=== PATIENT | male | born 1995 ===

== ENCOUNTER 2018-08-22 06:15 | Day surgery (SDC) | payer BC ==
[~2018-08-22] VITALS: Ht 167.6 cm; Wt 65.8 kg
[2018-08-22] VITALS (13 sets, daily range): BP systolic 116–134; BP diastolic 61–87
[2018-08-22] MEDS ORDERED: Dexamethasone 4mg/ml vial IVP ONE (06:30)
[2018-08-22] MEDS ORDERED: PROPECIA1 MG PO (06:38)
[2018-08-22] MEDS ORDERED: Lidocaine 1% 10mg/ml/Epi 0.005mg/ml 30ml vial INJ ONE (06:58)
[2018-08-22] MEDS ORDERED: Bupivacaine 0.5% 10ml INJ ONE (06:58)
[2018-08-22] MEDS ORDERED: Cocaine HCl 4% 4ml vial TOPIC ONE (06:58)
[2018-08-22] MEDS ORDERED: Midazolam 2mg/2ml Inj ONE (07:01)
[2018-08-22] MEDS ORDERED: fentaNYL 100 mcg/2 mL IV ONE (07:01)
[2018-08-22] MEDS ORDERED: Propofol 200mg/20ml IV ONE (07:02)
[2018-08-22] MEDS ORDERED: Bupivacaine w/Epi 0.5% 30ml Vial INJ ONE (07:13)
[2018-08-22] MEDS ORDERED: TransDerm Scop 1mg/72HR Patch TDERMAL ONE ×2 (07:36→08:15)
[2018-08-22] MEDS ORDERED: NS Irrig 1000ml ONE (07:40)
[2018-08-22] MEDS ORDERED: LR 1000ml ONE (07:40)
[2018-08-22] MEDS ORDERED: Ketorolac 30mg Inj ONE (07:40)
[2018-08-22] MEDS ORDERED: Sterile Water Irrig 1000ml IRRIG ONE (07:40)
[2018-08-22] MEDS ORDERED: Dexamethasone 4mg/ml vial ONE (07:40)
--- NOTE | 2018-08-22 07:45 | Pre-Procedure Note/Attestation ---
Pre-Procedure Note/Attestation Complete Prior to Procedure Planned Procedure: bilateral Procedure Narrative: ORIF nasal fracture Septoplasty SMR bilateral inferior turbinates Indications for Procedure Pre-Operative Diagnosis: Nasal deformity Nasal septal deviation Hypertrophied inferior turbinates Attestation I attest that I discussed the nature of the procedure; its benefits; risks and complications; and alternatives (and the risks and benefits of such alternatives ), prior to the procedure, with the patient (or the patient's legal account maintenance representative). I attest that, if there was a reasonable possibility of needing a blood transfusion, the patient (or the patient's legal account maintenance representative) was given the [facility] standardized written summary, pursuant to the [place] Blood Safety Act ([place] Health and Safety Code # 1645, as amended). I attest that I re-evaluated the patient just prior to the surgery and that there has been no change in the patient's H&P. Best Lovell MD Aug 22, 2018 07:45
--- NOTE | 2018-08-22 08:12 | Anethesia Preoperative Eval ---
Anesthesia Pre-op PMH/ROS General Date of Evaluation: Aug 22, 2018 Time of Evaluation: 07:25 Anesthesiologist: Valdemar ASA Score: ASA 1 Mallampati Score Class I : Soft palate, uvula, fauces, pillars visible Class II: Soft palate, uvula, fauces visible Class III: Soft palate, base of uvula visible Class IV: Only hard plate visible Mallampati Classification: Class II Surgeon: Nas Diagnosis: Nasal septum deviation Surgical Procedure: Septoplasty Anesthesia History: none Family History: no anesthesia problems Allergies: Coded Allergies: No Known Allergies (Unverified , 08/22/18) Medications: see eMAR Patient NPO?: Yes Past Medical History Cardiovascular: Denies: HTN, CAD, SD, valve dz, arrhythmia, other Pulmonary: Denies: asthma, COPD, LAURA, other Gastrointestinal/Genitourinary: Denies: GERD, CRI, ESRD, other Neurologic/Psychiatric: Denies: dementia, CVA, depression/anxiety, TIA, other Endocrine: Denies: DM, hypothyroidism, steroids, other HEENT: Denies: cataract (L), cataract (R), glaucoma, [place] (L), [place] (R), other Hematology/Immune: Denies: anemia, DVT, bleeding disorder, other Musculoskeletal/Integumentary: Denies: OA, RA, DJD, DDD, edema, other PMH Narrative: as above PSxH Narrative: none Anesthesia Pre-op Phys. Exam Physician Exam Last Vital Signs Date Time Temp Pulse Resp B/P (MAP) Pulse Ox O2 Delivery O2 Flow Rate FiO2 08/22/18 06:43 97.6 86 18 116/61 99 Room Air Constitutional: NAD Cardiovascular: RRR, no M/R/G Respiratory: CTA Gastrointestinal: S/NT/ND Airway Exam Mallampati Score: Class II MO: full Neck: flexible ROM: full Dentures: no upper, no lower Anesthesia Pre-op A/P Labs see chart Risk Assessment & Plan Assessment: ASA 1 Plan: GA with LMA PONV prevention Status Change Before Surgery: No Pre-Antibiotics Drug: Ancef 1gr Given Within 1 Hr of Incision: Yes Time Given: 07:50 Preet Aldrich MD Aug 22, 2018 08:12
[2018-08-22] MEDS ORDERED: LR 1000ml 1,000 ML IVLG SCH (08:13)
[2018-08-22] MEDS ORDERED: Metoclopramide 10mg/2ml Inj IVP PRN ×2 (08:15→09:15)
[2018-08-22] MEDS ORDERED: Meperidine 50mg/ml Inj(FOR RIGORS ONLY) IV PRN (08:15)
[2018-08-22] MEDS ORDERED: Ketorolac 30mg Inj IV PRN (08:15)
[2018-08-22] MEDS ORDERED: DiphenhydrAMINE 50mg/ml Inj IVP PRN (08:15)
--- NOTE | 2018-08-22 08:55 | Brief Operative Note ---
Immediate Post Operative Note Operative Note Chief Complaint: Nasal deformity, Nasal airway obstruction Pre-op Diagnosis: Nasal deformity Nasal septal deviation Hypertrophied inferior turbinates Procedure: 1. ORIF nasal fracture 2. Septoplasty 3. SMR right inferior turbinate 4. SMR left inferior turbinate Post-op Diagnosis: same as pre-op Surgeon: Best Lovell Financial Services Officer: none Additional Surgeons: none Anesthesiologist: Dr. Doty Anesthesia: general Specimen: yes - gross septal bone and cart. Complications: none Condition: stable Fluids: D5LR Estimated Blood Loss: volume - 150 cc Drains: none Packing: Stamberger nasal gel Implant(s) used?: No Best Lovell MD Aug 22, 2018 08:55
--- NOTE | 2018-08-22 09:02 | Immediate Post-Op Evaluation ---
Immediate Post-Op Evalulation Immediate Post-Op Evalulation Procedure: Septoplasty, turbinate ablasion Date of Evaluation: Aug 22, 2018 Time of Evaluation: 09:00 IV Fluids: 800 Blood Products: none Estimated Blood Loss: 50 Urinary Output: none Blood Pressure Systolic: 124 Blood Pressure Diastolic: 76 Pulse Rate: 87 Respiratory Rate: 20 O2 Sat by Pulse Oximetry: 99 Temperature (Fahrenheit): 97.8 Pain Score (1-10): 1 Nausea: No Vomiting: No Complications none Patient Status: reacts, patent, none Hydration Status: adequate Preet Aldrich MD Aug 22, 2018 09:02
--- NOTE | 2018-08-22 09:09 | Discharge Instructions ---
Discharge Instructions Discharge Instructions Follow up with: 08/28/18 Dr. Lovell's office-pt already has appt with time Diet: regular Resume Normal Activity?: No Activity: light activity Pneumonia Vaccine: pt refused vaccine Influenza Vaccine (Apr to Sep): pt refused vaccine Follow Up Orders Pt has printed instructions for post op care reviewed with me during his pre op visit in the office last week. He also has post op meds Rx fro [facility] and [place]. Return to Work/School on: Sep 05, 2018 Special Instructions ice to face x 48 hours. For Surgical Patients Dressing Care: may change May shower: No For Congestive Heart Failure Reminder Report to your physician any weight gain of 5 pounds or more in one week. Best Lovell MD Aug 22, 2018 09:09
[2018-08-22] MEDS ORDERED: Norco 5mg/325mg tab ORAL PRN (09:15)
[2018-08-22] MEDS ORDERED: HYDROmorphone 1mg/ml Carpuject SUBQ PRN (09:15)
--- NOTE | 2018-08-22 10:00 | 48 Hour Post Anesthesia Eval ---
Post Anesthesia Evaluation Procedure: Septoplasty, turbinate ablasion Date of Evaluation: Aug 22, 2018 Time of Evaluation: 09:58 Blood Pressure Systolic: 116 0: 74 Pulse Rate: 108 Respiratory Rate: 20 Temperature (Fahrenheit): 98.5 O2 Sat by Pulse Oximetry: 99 Airway: patent Nausea: No Vomiting: No Pain Intensity: 1 Hydration Status: adequate Cardiopulmonary Status: stable Mental Status/LOC: patient returned to baseline Follow-up Care/Observations: n/a Post-Anesthesia Complications: none Follow-up care needed: ready to discharge Preet Aldrich MD Aug 22, 2018 10:00
--- NOTE | 2018-08-22 17:45 | Operative Note - Dictated ---
DATE OF OPERATION: 08/22/2018 SURGEON: Best Lovell M.D. SENIOR ENVIRONMENTAL PRACTICE LEADER: None. ANESTHESIOLOGIST: Feliciano. ANESTHESIA: LMA general anesthesia with 18 mL of 50:50 mixture of 1% lidocaine with 1:100,000 epinephrine and Marcaine 0.5% with 1:200,000 epinephrine. Additionally, 4 mL of 4% topical cocaine were placed on a total of 4 nasal pledgets, two on either nostril, which were retrieved and accounted for at the end of the case. INDICATION FOR SURGERY: Nasal deformity, nasal airway obstruction due to septoplasty, and hypertrophied bilateral inferior turbinates. PREOPERATIVE DIAGNOSES: Nasal deformity, nasal airway obstruction due to septoplasty, and hypertrophied bilateral inferior turbinates. POSTOPERATIVE DIAGNOSES: Nasal deformity, nasal airway obstruction due to septoplasty, and hypertrophied bilateral inferior turbinates. FINDINGS: S-shaped septum as well as nose was off to the right. PROCEDURES: 1. Open reduction and internal fixation, nasal fracture. 2. Septoplasty. 3. Submucous resection, right inferior turbinate. 4. Submucous resection, left inferior turbinate. TECHNIQUE: The patient was prepped and draped in usual manner. Time-out was performed and all concurred as the equipment and procedures to be done. Initially, I injected with the aforementioned lidocaine, Marcaine, and epinephrine mixture. I then placed nasal pledgets in the nostril. Submucous resection of the right inferior turbinate was first done. Incision, anteroinferior position. Elevated with [place] elevator and then coblated with a 54 blade, setting of 6, 10 seconds after coating with saline gel x2 passes. Left inferior turbinate was addressed. Incision made and elevated with a [place] elevator. I then passed the radiofrequency wand after coating with nasal gel at a setting of 6 x 10 seconds twice. I then turned my attention to the septum, which was quite malaligned in that it was off to the right with thick bone and off to the left in the vomer, so it was very concave on the left and convex on the right. A Jermain incision was made on the lower left to lift up over the vomer and under direct vision, a small straight guarded osteotome was utilized to remove the bony vomer and straight Jan to pull it out. I then turned my attention to the upper part of the septum on the right via the right naris. A small Jermain incision made, elevated, removed by elevating the periosteum. Subperiosteal elevation on either side utilizing an angled scissors to remove the deviated septum and then this was all sewn back together with a 4-0 plain suture x3. Incision made between the cartilages and lateral end side of the nares low. I then proceeded to take a Paulo elevator and elevated the periosteum and perichondrium over the anterior part of the nose. Medium straight guarded osteotome to make the medial osteotomy and then low lateral osteotomies with a small straight guarded osteotome. Nose was then freely fractured. A Boies elevator and an Chaz forceps were utilized to delineate this. I then proceeded to place the nose back into position and rasp anteriorly. A tape was placed on the nose and a stent. The nose was then suctioned clean and placed Stammberger nasal gel. Mustache dressing was placed. COUNTS: Sponge and needle count was correct. ESTIMATED BLOOD LOSS: Approximately 150 mL. COMPLICATIONS: None. DRAINS: None. Approximately 20 minutes later, I saw the patient in the recovery room. They changed the nasal dressing once. He was doing well, awake, stable. Pain he stated was tolerable, 4/10. I did speak with the patient's father. Best Lovell M.D. DR: RIVER JOB#: [id number] CC:
[2018-08-23] MEDS ORDERED: ceFAZolin sod 1 GM in NS 55 ML IVPB ONE (06:30)
--- NOTE | 2018-08-23 13:00 | Pre-op HX & Phy Repo 2 SIG ---
DATE OF SURGERY: 08/22/2018 INDICATION FOR SURGERY: This is a 23-year-old male for repair of acquired nasal deformity, deviated nasal septum, hypertrophied right and left inferior turbinates. PAST MEDICAL HISTORY: Unremarkable for heart, liver, lung, kidney, tobacco, alcohol, chemical dependency issues. His nutrition, omnivore, low red meat. PAST SURGICAL HISTORY: He had a frenulectomy as a baby without any difficulty. SOCIAL HISTORY: He gets exercise on a regular basis. FAMILY HISTORY: Asthma only. MEDICATIONS: He has amoxicillin, hydrocodone, and acetaminophen postop. PHYSICAL EXAMINATION: VITAL SIGNS: He is 5 feet 6 inches, 135 pounds, BMI 21.79. Blood pressure 120/80, temperature 98.6, pulse 72, and respiratory rate 14. HEENT: Head normocephalic. Eyes, PERRLA, EOMI. Lips, tongue, pharynx, and neck, ears, all normal. Nose is shifted to the right consistent with nasal injury as a child. He has hypertrophied right and left inferior turbinates with an intact septum deviated to the right superiorly and to the left inferiorly. CHEST: Clear to A and P. ABDOMEN: Nontender. Normoactive bowel sounds. NEUROLOGIC: Cranial nerves II through XII grossly normal. GENITOURINARY: Exam not done. Not pertinent to this case. HEART: Normal S1, S2. No S3 or S4. No murmur, bruit, gallop, or rub. ASSESSMENT: He is a candidate for ORIF of nasal fracture, septal fracture and submucous resection of right and left inferior turbinates. PLAN: Surgery tomorrow. He has had a preop with me and already has amoxicillin and [place] for postop as well as free printed preop and postop printed instructions which he has and I reviewed with him at his preop last week. Best Lovell M.D. DR: Audrey JOB#: [id number] CC:
== END 2018-08-22 10:55 | disposition home or self-care (01) ==
LOC: SUR 06:15
DX: M95.0 Acquired deformity of nose (principal); J34.2 Deviated nasal septum; J34.3 Hypertrophy of nasal turbinates
CPT/HCPCS: 30140; 30520; J0690; J1100; J1885; J2175; J2250; J2405; J2704; J3010; 94003; 94150